=== PATIENT | male | born 1980 | race Caucasian/White ===

== ENCOUNTER 2021-05-23 01:11 | Emergency (ER) | payer OTHER ==
[~2021-05-23] VITALS: Ht 165.1 cm; Wt 84.1 kg
[2021-05-23] MEDS ORDERED: DOXYCYCLINE HYCLATE 100 MG TABLET PO ONE (02:45)
[2021-05-23] MEDS ORDERED: CEPHALEXIN MONOHYDRATE 500 MG CAPSULE PO ONE (02:45)
[2021-05-23] MEDS ORDERED: LIDOCAINE 1% 10 ML VIAL INJ ONE (02:45)
[2021-05-23] MEDS ORDERED: ACETAMINOPHEN/CODEINE 300-30 MG TABLET PO ONE (02:45)
[2021-05-23] MEDS ORDERED: IBUPROFEN 600 MG TABLET PO ONE (02:45)
[2021-05-23] MEDS ORDERED: PERTUSS(ACELL),DIPH,TET VAC/PF 0.5 ML SYRINGE IM. ONE (02:45)
[2021-05-23] MEDS ORDERED: BACITRACIN 0.9 GM PACKET OINTMENT TP ONE (02:45)
[2021-05-23 04:49] VITALS: BP 128/77
== END 2021-05-23 04:30 | disposition home or self-care (01) ==
LOC: EMS 01:15
DX: L03.011 Cellulitis of right finger (principal); F17.210 Nicotine dependence, cigarettes, uncomplicated; F12.90 Cannabis use, unspecified, uncomplicated; Z59.0 Homelessness
CPT/HCPCS: 10060; 99284; J3490; 90715